=== PATIENT | male | born 1940 | race Caucasian/White ===

== ENCOUNTER 2018-07-29 08:59 | Day surgery (SDC) | payer MEDICARE, SELFPAY ==
--- NOTE | 2018-07-29 | LES_PTH ---
PATIENT: BEULAH GIANG LOC: [facility] – [place] U#:[id number] AGE/SX: 77/M ROOM: RE07/29/[address]: Dr. Carl Cannon MD : 1940 BED: DIS: 07/29/2018 SPEC #: [id number] RECD: 07/29/18 12:27 STATUS: ASHLYN REMana #: [id number] THERESA: 07/29/18 00:[address]: Carl Cannon DEPT: SURGICAL PATHOLOGY RECD BY: Antonia Rome ENTERED: 07/29/18 14:09 SP TYPE: Lesion OTHR DR: Dr. Romario Hammond MD Tissues: A - Skin of face, NOS B - Skin, NOS Procedures: Frozen Section (charge) Surgery Specimen Level IV Frozen (no charge) HEADER OPERATION: Excision lesion basal cell cancer, medial cheek by melolabial fold PRE-OP DIAGNOSIS: 9 mm lesion right medial cheek by melolabial fold TISSUE SUBMITTED: A - 9 mm lesion right medial cheek by melolabial fold, B - Basal cell carcinoma, suture at 12 o'clock FROZEN SECTION DIAGNOSIS A. Skin lesion, right medial cheek, shave biopsy: Basal cell carcinoma. AM:karen 07/29/18 Case has been reviewed in consultation with Dr. Bliss who concurs with the above diagnosis. IDC:SJ MICROSCOPIC DIAGNOSIS A. Right medial cheek lesion, shave biopsy: Basal cell carcinoma. B. Basal cell carcinoma, excisional biopsy: Basal cell carcinoma, completely excised. Solar elastosis. JOHNATHAN:karen 07/30/18 MICROSCOPIC DESCRIPTION Slides are reviewed. GROSS DESCRIPTION A - Received fresh for frozen section consultation labeled with the patient's name is a specimen designated right medial cheek lesion. The specimen consists of light gil shaved skin measuring 0.8 x 0.5 x 0.1 cm. The specimen is inked, bisected and totally submitted for frozen section consultation in one block. / AM:karen 07/29/18 B - Received in fixative is one container labeled with the patient's name and designated basal cell carcinoma, suture at 12 o'clock. The specimen consists of a adrienne-shaped piece of gil-white skin measuring 1.5 x 1.2 cm and up to 0.5 cm in thickness. The specimen is identified by a suture at 12 o'clock. The specimen is inked as follows: 12-3 o'clock - black, 3-6 o'clock - blue, 6-9 o'clock - green and 9-12 o'clock - yellow. A focal area of ulceration is noted measuring 0.7 x 0.7 cm consistent with site of specimen A. The specimen is serially sectioned and submitted entirely in two cassettes as follows: 1 - 3 and 9 o'clock tip, 2 - rest of the specimen. / JOHNATHAN:karen 07/29/18 TC:0 CPT: 72711, 05459
[2018-07-29 09:20] VITALS: BP 133/75; PULSE 67; RESP 16; TEMP 36.3; O2SAT 100; BMI 24.4
[2018-07-29] MEDS: Mupirocin Ointment 22gm Tube 1 APPLIC (12:49)
--- NOTE | 2018-07-29 13:06 | OP.PN_ITS ---
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 9 mm lesion right medial cheek by melolabial fold. 2. Personal history of skin cancer. 3. Former smoker. Post-Operative Diagnosis: 1. 9 mm basal cell carcinoma right medial cheek by melolabial fold. 2. Personal history of skin cancer. 3. Former smoker. Surgery/Procedure Performed:: Excision 9 mm basal cell carcinoma right medial cheek by melolabial fold with rhomboid transposition skin flap reconstruction (4.5 cm2). Description of Surgical Findings:: 77 year old man presents for evaluation for TBSE. He is concerned about a lesion on his right medial cheek by the melolabial fold that has increased in size over the last several months. It is erythematous in color. It has developed irregular borders. He denies any fever. He denies any trauma. He denies any recent infection. He denies any bleeding. He had a basal cell carcinoma excised from his left occipital scalp in 2013. He had the lesion right medial cheek by the melolabial fold excised and sent to Pathology as a frozen section. Frozen section showed a basal cell carcinoma. Today the patient underwent excision 9 mm basal cell carcinoma right medial cheek by melolabial fold with rhomboid transposition skin flap reconstruction (4.5 cm2). Frozen section right medial cheek by melolabial fold - basal cell carcinoma. Estimated Blood Loss: 5 ml. Specimen's removed: 1. Lesion right medial cheek by melolabial fold to P athology as a frozen section. 2. Basal cell carcinoma right medial cheek by melolabial fold to Pathology. Drains: None. Type of Anesthesia:: Local MAC - xylocaine with epinephrine and IV sedation. - Admit VTE Documentation VTE Present on Admission: No VTE Mechan Device Prophylaxis: SCD's VTE Pharm Prophylaxis ordered?: No
--- NOTE | 2018-07-29 13:16 | DCINST_ITS ---
You will use the following diet at home:: No restrictions Discharge Activity: May not drive while taking narcotic pain medications., May Shower - in two days., - - keep head elevated. no heavy lifting. May shower in (days): 2 May resume sexual activity in: No Restrictions Ice area for (Minutes): 5 - as needed for facial swelling. Weight Bearing Status: Weight bearing as tolerated Lifting Restrictions: 20 lbs. Keep extremity elevated above heart level: - - elevate head. Call your doctor if your incision/area has: Continuous Slow Oozing, Sudden Increased Bleeding, Increased Pain/ Swelling, Increased Redness, Foul Smelling Discharge, Swelling at the incision site Call your doctor if you observe: Fever of 101 or Higher, Coldness, Increased Pain, Shortness of breath, Chest pain, Calf discomfort, Uncontrolled pain Suture Line Care: - - apply antibiotic ointment to suture line daily. Cleanse incision/area with: - - may get the incision wet in the shower in two days. Allergies/Adverse Reactions: Allergies No Known Allergies Allergy (Verified 07/22/18 10:16) Medications to take at Discharge Clindamycin HCl [Cleocin] 300 mg PO Q6H #15 cap 07/29/18 Lactobacillus Acidophilus/Fos [Acidophilus Probiotic Tablet] 1 ea PO BID #10 tab 07/29/18 Oxycodone HCl/Acetaminophen [Percocet 5/325] 1 - 2 tab PO 4X/DAY PRN PRN 3 Days #20 tab 07/29/18 The following prescriptions were given: Oxycodone HCl/Acetaminophen [Percocet 5/325] 1 - 2 tab PO 4X/DAY PRN PRN 3 Days #20 tab PRN Reason: Pain Lactobacillus Acidophilus/Fos [Acidophilus Probiotic Tablet] 1 ea PO BID #10 tab Clindamycin HCl [Cleocin] 300 mg PO Q6H #15 cap Primary Care Physician: Romario Hammnod MD [Primary Care Provider] - Test Results: Test results from this visit will be discussed in further detail at your follow- up appointment, if applicable. Please Follow Up With: Carl Cannon MD When: one week. call [phone] for appt. Proposed Discharge Date: 07/29/18
[2018-07-29 13:22] VITALS: BP 114/63; BP 133/75; PULSE 60; RESP 16; TEMP 36.1; O2SAT 99
[2018-07-29 13:27] VITALS: BP 122/67; BP 133/75; PULSE 61; RESP 16; O2SAT 98
[2018-07-29 13:28] VITALS: BP 133/75
[2018-07-29 13:32] VITALS: BP 119/64; BP 133/75; PULSE 58; RESP 16; O2SAT 98
[2018-07-29 13:37] VITALS: BP 117/71; BP 133/75; PULSE 54; RESP 16; TEMP 36.4; O2SAT 99
--- NOTE | 2018-07-29 18:42 | PCM.OPRPT ---
Report of Operation Date of Procedure: 07/29/18 Pre-Operative Diagnosis: 1. 9 mm lesion right medial cheek by melolabial fold. 2. Personal history of skin cancer. 3. Former smoker. Post-Operative Diagnosis: 1. 9 mm basal cell carcinoma right medial cheek by melolabial fold. 2. Personal history of skin cancer. 3. Former smoker. Surgery/Procedure Performed:: Excision 9 mm basal cell carcinoma right medial cheek by melolabial fold with rhomboid transposition skin flap reconstruction (4.5 cm2). Description of Surgical Findings:: 77 year old man presents for evaluation for TBSE. He is concerned about a lesion on his right medial cheek by the melolabial fold that has increased in size over the last several months. It is erythematous in color. It has developed irregular borders. He denies any fever. He denies any trauma. He denies any recent infection. He denies any bleeding. He had a basal cell carcinoma excised from his left occipital scalp in 2013. Patient was informed of the risks and complications of the procedure including alternatives to surgery. These were discussed with the patient personally. Patient voices understanding and wishes to proceed. Some of the risks and complications were included in a form from the [place] [employer]. Frozen section right medial cheek by melolabial fold - basal cell carcinoma. 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 Specimen's removed: 1. Lesion right medial cheek by melolabial fold to Pathology as a frozen section. 2. Basal cell carcinoma right medial cheek by melolabial fold to Pathology. Drains: None. Estimated Blood Loss (mL): 5 ml. Description of Procedure: Patient was taken to OR in supine position and was given IV sedation. The face was prepped and draped in the usual fashion. SCD's were placed for DVT prophylaxis. Perioperative antibiotics were given intravenously. The lesion on the right medial cheek by melolabial fold was infiltrated with xylocaine and epinephrine. After waiting 5 minutes for the anesthetic to take effect, the lesion was excised in an intradermal fashion and sent to Pathology as a frozen section. Frozen section showed a basal cell carcinoma. Therefore further excision was done by marking a rhomboid design around the lesion with a 3 mm margin in all directions. Thus it was a 1.5 cm excision. A rhomboid flap was designed inferior to the lesion. The markings were infiltrated with xylocaine with epinephrine. After waiting 5 minutes for the anesthetic to take effect, I excised the basal cell carcinoma in a rhomboid fashion into the subcutaneous tissue. A suture was marked at the 12 oclock position for pathology orientation. The lesion was then sent to Pathology for analysis to rule out carcinoma at the margins. The rhomboid flap was incised down into the subcutaneous tissue. The rhomboid flap was raised on a subcutaneous pedicle and was easily transposed into the defect with minimal tension and distortion. Hemostasis was obtained with electrocautery. The wounds were closed after the rhomboid flap was transposed into the defect with 5-0 Monocryl interrupted sutures for the deep dermis and subcutaneous tissue. The skin was approximated with 6-0 Prolene simple interrupted sutures. Antibiotic ointment was applied to the suture line. Patient tolerated the procedure well and was sent to PACU in satisfactory condition. Patient will be sent home on antibiotics and pain medication. Patient will keep his head elevated during the initial postop period. Patient will followup in a week for a wound check and for discussion of the pathology report and for removal of the sutures. Grafts/Implants Used: None. - Complications None. - Admit VTE Documentation VTE Present on Admission: No VTE Mechan Device Prophylaxis: SCD's VTE Pharm Prophylaxis ordered?: No Code Visit Surgery Charges CPT - 29947 ICD-10 - C44.319, Z85.828, Z87.891
--- NOTE | 2018-07-30 17:43 | OP.PCM_ITS ---
Report of Operation Date of Procedure: 07/29/18 Pre-Operative Diagnosis: 1. 9 mm lesion right medial cheek by melolabial fold. 2. Personal history of skin cancer. 3. Former smoker. Post-Operative Diagnosis: 1. 9 mm basal cell carcinoma right medial cheek by melolabial fold. 2. Personal history of skin cancer. 3. Former smoker. Surgery/Procedure Performed:: Excision 9 mm basal cell carcinoma right medial cheek by melolabial fold with rhomboid transposition skin flap reconstruction (4.5 cm2). Description of Surgical Findings:: 77 year old man presents for evaluation for TBSE. He is concerned about a lesion on his right medial cheek by the melolabial fold that has increased in size over the last several months. It is erythematous in color. It has developed irregular borders. He denies any fever. He denies any trauma. He d enies any recent infection. He denies any bleeding. He had a basal cell carcinoma excised from his left occipital scalp in 2013. Patient was informed of the risks and complications of the procedure including alternatives to surgery. These were discussed with the patient personally. Patient voices understanding and wishes to proceed. Some of the risks and complications were included in a form from the [place] [employer]. Frozen section right medial cheek by melolabial fold - basal cell carcinoma. 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 Specimen's removed: 1. Lesion right medial cheek by melolabial fold to Pathology as a frozen section. 2. Basal cell carcinoma right medial cheek by melolabial fold to Pathology. Drains: None. Estimated Blood Loss (mL): 5 ml. Description of Procedure: Patient was taken to OR in supine position and was given IV sedation. The face was prepped and draped in the usual fashion. SCD's were placed for DVT prophylaxis. Perioperative antibiotics were given intravenously. The lesion on the right medial cheek by melolabial fold was infiltrated with xylocaine and epinephrine. After waiting 5 minutes for the anesthetic to take effect, the lesion was excised in an intradermal fashion and sent to Pathology as a frozen section. Frozen section showed a basal cell carcinoma. Therefore further excision was done by marking a rhomboid design around the lesion with a 3 mm margin in all directions. Thus it was a 1.5 cm excision. A rhomboid flap was designed inferior to the lesion. The markings were infiltrated with xylocaine with epinephrine. After waiting 5 minutes for the anesthetic to take effect, I excised the basal cell carcinoma in a rhomboid fashion into the subcutaneous tissue. A suture was marked at the 12 oclock position for pathology orientation. The lesion was then sent to Pathology for analysis to rule out carcinoma at the margins. The rhomboid flap was incised down into the subcutaneous tissue. The rhomboid flap was raised on a subcutaneous pedicle and was easily transposed into the defect with minimal tension and distortion. Hemostasis was obtained with electrocautery. The wounds were closed after the rhomboid flap was transposed into the defect with 5-0 Monocryl interrupted sutures for the deep dermis and subcutaneous tissue. The skin was approximated with 6-0 Prolene simple interr upted sutures. Antibiotic ointment was applied to the suture line. Patient tolerated the procedure well and was sent to PACU in satisfactory condition. Patient will be sent home on antibiotics and pain medication. Patient will keep his head elevated during the initial postop period. Patient will followup in a week for a wound check and for discussion of the pathology report and for removal of the sutures. Grafts/Implants Used: None. - Complications None. - Admit VTE Documentation VTE Present on Admission: No VTE Mechan Device Prophylaxis: SCD's VTE Pharm Prophylaxis ordered?: No Code Visit Surgery Charges CPT - 99281 ICD-10 - C44.319, Z85.828, Z87.891
== END 2018-07-29 14:54 | disposition home or self-care (01) ==
LOC: SDC 09:06 → AC 09:07
PROVIDERS: Family Provider Family Medicine; PCP Family Medicine; Visit Provider Surgery
PROC: (CPT 14040; principal; 2018-07-29 10:45)
DX: C44.319 Basal cell carcinoma of skin of other parts of face (principal); Z85.828 Personal history of other malignant neoplasm of skin; Z87.891 Personal history of nicotine dependence
CPT/HCPCS: 00300; 14040; 88305; 88331; J7120

== ENCOUNTER 2019-03-03 09:08 | Day surgery (SDC) | payer MEDICARE, SELFPAY ==
[2019-02-21 14:13] VITALS: BMI 24.3
[2019-03-03] VITALS (7 sets, daily range): BP systolic 96–121; BP diastolic 51–63; PULSE 59–71; RESP 16; TEMP 36–36.4; O2SAT 93–99; BMI 25.0
--- NOTE | 2019-03-03 05:59 | PCM.HP.BLA ---
Problem List (1) Lipoma Status: Acute Qualifiers: Lipoma location: neck (2) Skin cancer Status: Acute History and Physical Date of Admission: 03/03/19 MR#:[id number]:[id number] Name: BEULAH GIANG Rep #: [id number] : 1940 Provider: Joseph Santos MD Age/Sex: 78/M [place] [facility] [place] Status: Signed Intake Vital Signs 02/21/19 Height 5 ft 6 in 02/21/19 Weight: 150 lb 7 oz 02/21/19 Body Mass Index (BMI) 24.3 02/21/19 Blood Pressure 128/71 H 02/21/19 Blood Pressure Location Rt brachial 02/21/19 Blood Pressure Position Sitting 02/21/19 Respiratory Rate 16 02/21/19 Pulse Rate 84 02/21/19 Pulse Ox 97 Intake Visit Reasons: mass of neck, per connie 10 minutes ok Chief Complaint: 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 Is patient in pain?: No Allergies No Known Allergies Allergy (Verified 02/21/19 14:14) Medications Lactobacillus Acidophilus/Fos [Acidophilus Probiotic Tablet] 1 ea PO BID #10 tab 07/29/18 [Rx Confirmed 02/21/19] amlodipine 10 mg tablet 10 mg PO DAILY 02/21/19 [History Confirmed 02/21/19] atorvastatin 40 mg tablet 40 mg PO DAILY 02/21/19 [History Confirmed 02/21/19] lisinopril 10 mg tablet 10 mg PO DAILY 02/21/19 [History Confirmed 02/21/19] tamsulosin 0.4 mg capsule 0.4 mg PO DAILY 02/21/19 [History Confirmed 02/21/19] PFSH Medical History Lipoma (Acute) Skin cancer (Acute) BPH (benign prostatic hyperplasia) (Acute) Hyperlipidemia (Acute) Osteoarthritis (Acute) HTN (hypertension) (Chronic) Back problem (Acute) Gout (Acute) Skin cancer (Acute) Surgical History History of colonoscopy (Acute) History of repair of right rotator cuff (Acute) Family History Father No problems noted. Social History Smoking Status: Former smoker alcohol intake: never substance use type: does not use additional social history: DOES USE ASPIRIN DOES USE IBUPROFEN HPI HPI HPI: BEULAH GIANG, is a 78 M who presents to the office today for general surgical consultation regarding a nonhealing intermittently bleeding skin lesion of the posterior neck that overlies a subcutaneous fibrofatty mass. The fibrous fatty mass is been present for an extended period of time. The lesion causing intermittent bleeding has been present for several months. The patient has had a previous history of skin cancers that have been treated with liquid nitrogen and excision. HPI HPI HPI: BEULAH GIANG, is a 78 M who presents to the office today for ROS General General: No weight change, appetite, fatigue, colon cancer, breast cancer or weakness HEENT HEENT: No difficulty swallowing, eye injury, eye surgery, swollen glands or hoarseness Endo Endocrine: No thyroid disease, diabetes mellitus, thyroid cancer, Hair loss, heat intolerance or cold intolerance Musc Musculoskeletal: Yes back problems and arthritis; no rheumatoid arthritis, gout or joint pain Cardio Cardiovascular: Yes high blood pressure; no murmur, pacemaker, heart disease, atrial fibrillation, heart attack, heart stent, palpitations, shortness of breat with exertion or chest pain Resp Respiratory: No shortness of breath, No sleep apnea, No cough, No COPD, No asthma, No emphysema, No wheezing Gastro Gastrointestinal: No abdominal pain, No nausea or vomiting, No diarrhea, No constipation, No blood in stool, No acid reflux, No hemorrhoids, No ulcers, No gallbladder problem, No black,tarry stools Neuro Neurologic: No weakness Exam Const General: cooperative, healthy appearing, comfortable, no acute distress Nutritional Appearance: average body habitus [facility] Head: normal to inspection Neck Other: Mid posterior neck deep partially fixed 4.5 x 6 cm rubbery soft tissue mass Overlying this there is a centrally ulcerated vague pearllike lesion measuring approximately 1.4 x 2 cm. Resp Effort & Inspection: normal respiratory effort Auscultation: clear to auscultation bilaterally Cardio Rate: regular rate Rhythm: regular rhythm Heart Sounds: no murmurs GI Palpation: soft Extrem General: no calf tenderness bilaterally Assessment & Plan Problems 1. Skin cancer C44.90 2. Lipoma of neck D17.0 Plan I have recommended the patient a transverse elliptical excision of the suspected ulcerated skin cancer. I believe this is a basal cell carcinoma. Unfortunately its position overlying the lipoma may make approximation of the skin difficult. I have therefore offered simultaneous removal of the lipoma in order to get less tension on the skin closure. I have discussed the technique, benefit, risk and alternatives. No guarantees of success have been offered. The patient is aware that I may need to utilize a subcutaneous drain. Pleating of the skin flaps will be performed as well. He has had an opting to ask and have questions answered. I would anticipate performing this under monitored anesthesia care local anesthetic. I very much appreciate the kind opportunity of assisting with his surgical care CC: Dr. Manish Santos M.D., F.A.C.S. Coding Level of Care Code Off vis,new,level 2 Diagnoses Skin cancer C44.90 Lipoma of neck D17.0 ??Lipoma location: neck 02/21/19 1517 <Electronically signed by Joseph Santos MD> Date Joseph Santos MD Cosigner Signature: Date (if applicable) CC: Romario Hammond MD ~
--- NOTE | 2019-03-03 11:10 | LIP_PTH ---
PATIENT: BEULAH GIANG LOC: [facility] [place] U#:[id number] AGE/SX: 78/M ROOM: RE03/03/[address]: Dr. Joseph Santos MD : 1940 BED: DIS: 03/03/2019 SPEC #: [id number] RECD: 03/03/19 12:22 STATUS: ASHLYN REMana #: [id number] THERESA: 03/03/19 11:[address]: Joseph Santos DEPT: SURGICAL PATHOLOGY RECD BY: Greg Sykes ENTERED: 03/03/19 13:39 SP TYPE: LIPOMA OTHR DR: Dr. Romario Hammond MD Tissues: Soft tissues, NOS Procedures: Surgery Specimen Level III Surgery Specimen Level IV HEADER OPERATION: Excision skin cancer and lipoma, posterior neck PRE-OP DIAGNOSIS: Skin cancer, subcutaneous lipoma TISSUE SUBMITTED: Transverse ellipse, suture at right lateral aspect of ellipse MICROSCOPIC DIAGNOSIS Posterior neck, excision skin cancer and lipoma: Basal cell carcinoma, nodular type (0.8 cm in greatest dimension), completely excised. Mature adipose tissue, consistent with lipoma. JOHNATHAN:karen 03/04/19 MICROSCOPIC DESCRIPTION Slides are reviewed. GROSS DESCRIPTION Received in fixative is one container labeled with the patient's name and designated transverse ellipse. The specimen consists of a gil-white skin ellipse measuring 5 x 1.5 cm and underlying adipose tissue measures 5.5 x 3 x 2.5 cm. A suture is noted identifying edge of right lateral aspect. This half is inked blue and medial half is inked black. The skin surface does not reveal any mass lesion. Also present in the container is a detached piece of adipose tissue measuring 1.5 x 1 x 0.5 cm. No obvious skin lesion is identified. Sections of underlying tissue reveal yellow adipose cut surfaces without area of hemorrhage, necrosis of cystic degeneration. Residential Manager sections are submitted in six cassettes as follows: 1-4 - the entire skin piece (1 contains the tips of skin ellipse, 2 contains the most medial portion of the skin ellipse and 4 contains the most lateral portion of the skin ellipse), 5 & 6 - underlying adipose tissue. / JOHNATHAN:karen 03/03/19 TC:0 CPT: 45166, 76876
[2019-03-03] MEDS: Bupivacaine Mpf 0.5% 30 ML VIAL (11:57)
--- NOTE | 2019-03-03 12:12 | DCINST_ITS ---
Discharge Diet: Light diet - advance as tolerated - if you have questions about your diet instructions, please talk to you doctor. Discharge Activity: May Not Drive - for 1-2 days or while taking narcotic pain medicine. May shower in (days): 1 Lifting Restrictions: 10 pounds Call your doctor if your incision/area has: Continuous Slow Oozing, Sudden Increased Bleeding, Increased Pain/ Swelling, Increased Redness, Foul Smelling Discharge Call your doctor if you observe: Fever of 101 or Higher Suture Line Care: Avoid Pulling/Pushing, Avoid Pinching/Bending Additional Dressing/Incision Instructions:: Change or remove dressing in 3 days. You may recover with a dry dressing or bandaide. Allergies/Adverse Reactions: Allergies No Known Allergies Allergy (Verified 03/03/19 09:30) Medications to take at Discharge amlodipine 10 mg tablet 10 mg PO DAILY 02/21/19 atorvastatin 40 mg tablet 40 mg PO DAILY 02/21/19 lisinopril 10 mg tablet 5 mg PO DAILY 02/21/19 tamsulosin 0.4 mg capsule 0.4 mg PO DAILY 02/21/19 Aspirin [Aspir-Low] 81 mg PO DAILY 02/24/19 Hydrocodone Bitart/Apap 5-325 [[place] 5MG-325MG] 1 tablet PO Q4H PRN PRN 2 Days #5 tablet 03/03/19 The following prescriptions were given: Hydrocodone Bitart/Apap 5-325 [[place] 5MG-325MG] 1 tablet PO Q4H PRN PRN 2 Days #5 tablet PRN Reason: Pain Primary Care Physician: Romario Hammond MD [Primary Care Provider] - Test Results: Test results from this visit will be discussed in further detail at your follow- up appointment, if applicable. Please Follow Up With: Joseph Santos MD - [phone] When: Call to make an appointment to be seen on Thursday for suture removal
--- NOTE | 2019-03-03 12:12 | PCM.OPRPT ---
Problem List (1) Lipoma Status: Acute Qualifiers: Lipoma location: neck Qualified Code(s): D17.0 - Benign lipomatous neoplasm of skin and subcutaneous tissue of head, face and neck (2) Skin cancer Status: Acute Report of Operation Date of Procedure: 03/03/19 Pre-Operative Diagnosis: Mid posterior neck suspected skin cancer and subcutaneous fibrofatty mass Post-Operative Diagnosis: Same Surgery/Procedure Performed:: Elliptical skin excision mid posterior neck with inclusion of subcutaneous fibrofatty fullness Description of Surgical Findings:: Timeout and informed consent was obtained. 78-year-old gentleman was taken to the operating room placed prone on the table. He underwent monitored anesthesia care local anesthetic. He has a skin lesion mid posterior neck measuring approximate 1.8 cm in diameter. It is overlying the subtenons fibrofatty mass. The area was prepped and draped. 1% lidocaine mixed 50-50 with 0.5% Marcaine was used as local anesthetic. Total 25 cc was used. A transverse elliptical excision measuring 5.5 x 2 cm were used to completely excise the skin lesion. Sharp dissection was carried down through the subcu tissue to the posterior neck fascia. The fibrofatty full dose was very nonspecific did not seem to formulate a distinct focal mass. I excised what seemed to be reasonable. Then the wound was approximated with a deep layer of interrupted 3-0 Vicryl trying to blood rate the deep space. Subdermal tissues were approximated with the same. Skin edges approximated simple sutures of 3-0 nylon. The skin ellipse was a transverse ellipse and a nylon suture was placed in the right lateral aspect of the ellipse. Skin prep Telfa OpSite dressings applied. Sponge and instrument and needle counts were reported to the surgical correct. Blood loss minimal. He tolerated the procedure well was taken to the recovery area in satisfactory condition without apparent complication. Specimen combined skin lesion and subcutaneous fibrofatty mass. Drains none. Blood loss minimal. Joseph Santos M.D., F.A.C.S. Type of Anesthesia:: Local MAC Anesthesiologist: Darron Mendez
== END 2019-03-03 14:04 | disposition home or self-care (01) ==
LOC: SDC 09:10 → AC 09:12
PROVIDERS: Family Provider Family Medicine; PCP Family Medicine; Referring Provider Surgery; Visit Provider Surgery
PROC: (CPT 11626; principal; 2019-03-03 10:55)
DX: D17.0 Benign lipomatous neoplasm of skin and subcutaneous tissue of head, face and neck (principal); C44.90 Unspecified malignant neoplasm of skin, unspecified; I10 Essential (primary) hypertension; Z87.891 Personal history of nicotine dependence
CPT/HCPCS: 11626; 88304; 88305; J7120

== ENCOUNTER → 2020-01-30 15:04 | Outpatient (CLI) | payer MEDICARE, SELFPAY ==
[2019-03-03 15:41] VITALS: BMI 25.0
--- NOTE | 2020-01-30 | PROSBIL_PTH ---
PATIENT: BEULAH GIANG LOC: [facility] U#:[id number] AGE/SX: 85/M ROOM: RE01/30/[address]: Dr. Conrad Lane MD : 1940 BED: DIS: SPEC #: [id number] RECD: 01/30/20 14:47 STATUS: ASHLYN VETO #: [id number] THERESA: 01/30/20 00:[address]: Conrad Lane DEPT: SURGICAL PATHOLOGY RECD BY: Trenton Lee ENTERED: 01/31/20 11:47 SP TYPE: PROST BX STAS DR: Dr. Romario Hammond MD Tissues: A - PROSTATE RIGHT B - PROSTATE RIGHT C - PROSTATE RIGHT D - PROSTATE LEFT E - PROSTATE LEFT F - PROSTATE LEFT Procedures: PROSTATE BX HEADER OPERATION: Prostate biopsy PRE-OP DIAGNOSIS: Elevated PSA TISSUE SUBMITTED: A - Right apex, B - Right mid, C - Right base, D - Left apex, E - Left mid, F - Left base MICROSCOPIC DIAGNOSIS A. Right prostate, apex, core biopsy: Minimal glandular atrophy and focal chronic inflammation. Focal high-grade prostatic intraepithelial neoplasia (HGPIN). B. Right prostate, mid, core biopsy: Focal high-grade prostatic intraepithelial neoplasia (HGPIN). Minimal glandular atrophy. C. Right prostate, base, core biopsy: Focal high-grade prostatic intraepithelial neoplasia (HGPIN). D. Left prostate, apex, core biopsy: Benign prostatic tissue. Focal glandular atrophy. E. Left prostate, mid, core biopsy: Glandular atrophy. Focal high-grade prostatic intraepithelial neoplasia (HGPIN). F. Left prostate, base, core biopsy: Benign prostatic tissue. AM:karen 02/01/20 COMMENT Case has been reviewed in consultation with Dr. Bliss who concurs with the above diagnosis. IDC:[email or web address] MICROSCOPIC DESCRIPTION Slides are reviewed. GROSS DESCRIPTION A - Received is one container designated prostate, right apex. The specimen consists of one elongated fragment of light gil-white soft tissue measuring 1.2 cm in length and 0.1 cm in diameter. The specimen is totally submitted in one cassette. B - Received is one container designated prostate, right mid. The specimen consists of one elongated fragment of light gil-white soft tissue measuring 0.8 cm in length and 0.1 cm in diameter. The specimen is totally submitted in one cassette. C - Received is one container designated prostate, right base. The specimen consists of one elongated fragment of light gil-white soft tissue measuring 0.9 cm in length and 0.1 cm in diameter. The specimen is totally submitted in one cassette. D - Received is one container designated prostate, left apex. The specimen consists of one elongated fragment of light gil-white soft tissue measuring 1.5 cm in length and 0.1 cm in diameter. The specimen is totally submitted in one cassette. E - Received is one container designated prostate, left mid. The specimen consists of one elongated fragment of light gil-white soft tissue measuring 1.5 cm in length and 0.1 cm in diameter. The specimen is totally submitted in one cassette. F - Received is one container designated prostate, left base. The specimen consists of one elongated fragment of light gil-white soft tissue measuring 1.2 cm in length and 0.1 cm in diameter. The specimen is totally submitted in one cassette. / SJ:rg 01/31/20 TC:3 CPT: G0146
== END ==
PROVIDERS: PCP Family Medicine; Referring Provider Urology; Visit Provider Urology
DX: N42.31 Prostatic intraepithelial neoplasia (principal); R97.20 Elevated prostate specific antigen [PSA]
CPT/HCPCS: 88305; G0416